=== PATIENT | male | born 1960 | race Two or more races ===

== ENCOUNTER 2024-01-13 12:46 | Emergency (ER) | payer SELFPAY ==
[2024-01-13 13:19] VITALS: BP 158/79; PULSE 60; RESP 19; TEMP 37.1; O2SAT 98; BMI 26.3
--- NOTE | 2024-01-13 13:27 | XR_ITS ---
Examination: Fingers, right hand first digit 3 views Technique: AP, oblique, lateral views right hand first digit 3 views. Exam date and time: January 23, 2024 1331 hrs. Indications: Injury to the hand yesterday with first digit pain Findings: Moderate osteopenia Displaced fracture off the ungual tuft tip distal phalanx No dislocation Impression: Displaced fracture fragment off the ungual tuft tip distal phalanx first digit
--- NOTE | 2024-01-13 13:28 | PD.EDWOUND ---
ED Wound/Laceration-RME/HPI General Chief Complaint: Wound/Laceration Stated Complaint: INJURY TO LEFT THUMB Time Seen by Provider: 01/13/24 12:57 Arrival date/time: 01/13/24 12:46 RME / HPI RME / HPI narrative: 63-year-old male patient with no significant medical history, came in for evaluation regarding left thumb crushing injury. Patient was holding a pipe and hit his thumb with a hammer resulting into laceration avulsion nail left thumb severity moderate. Patient denies any other injury no medication was taken prior to arrival. Related Data Previous Rx's ?Medication ?Instructions ?Recorded cyclobenzaprine 10 mg tablet 10 mg PO TID #14 tabs 04/17/18 indomethacin 25 mg capsule 25 mg PO BID #20 caps 04/17/18 cephalexin 500 mg capsule 500 mg PO Q8H 7 days #21 caps 01/13/24 ibuprofen 800 mg tablet 800 mg PO TID PRN pain #30 tabs 01/13/24 Allergies Allergy/AdvReac Type Severity Reaction Status Date / Time No Known Allergies Allergy Verified 04/17/18 18:17 Review of Systems Review of Systems Narrative Review of Systems: Review of system reviewed and within normal limits except mentioned in HPI ED Exam Narrative Physical exam: VITAL SIGNS: Reviewed. GENERAL APPEARANCE: Alert and interactive, follows commands, no acute distress, HEAD AND FACE: Non-traumatic. ENT: PERRL, pink conjunctivitis, eyelid no trauma, Mucous membrane moist. NECK: Supple, nontender, no nuchal rigidity. RECTAL: Deferred. GENITAL: Deferred. NEUROLOGICAL: Gross motor function intact sensory function intact, Appropriate for age. MUSCULOSKELETAL: low back nontender, full range of motion. EXTREMITIES: Nail avulsion, with 1 cm fingertip laceration left thumb, full range of motion. SKIN: Color pink, dry, no rash, no lacerations, no abrasions, no contusions. LYMPHATICS: Deferred. Course Quality Measures none Orders Category Date Time Status XR finger LT min 2V Stat Exams 01/13/24 13:27 Completed Ibuprofen Tab [Motrin Tab] Med 01/13/24 13:27 Discontinued 800 mg PO X1 ONE Lidocaine 1% 20 ml [Xylocaine 1% 20 ML] Med 01/13/24 13:27 Discontinued 10 ml IM X1 ONE Tet,Diphth,Pertuss(Acell)-Tdap [Boostrix Vacc] Med 01/13/24 13:27 Discontinued 0.5 ml IMI .ONCE ONE cephALEXin [Keflex] Med 01/13/24 13:27 Discontinued 500 mg PO X1 ONE Vital Signs Vital signs: Vital Signs Temperature 98.7 F 01/13/24 13:19 Pulse Rate 60 01/13/24 13:19 Respiratory Rate 19 01/13/24 13:19 Blood Pressure 158/79 H 01/13/24 13:19 Pulse Oximetry (%) 98 01/13/24 13:19 Oxygen Delivery Method Room Air 01/13/24 13:19 Procedures -ED Laceration Laceration 1: Site: other (Thumb) Side (If applicable): left Size (cm): 1.5 Description: irregular Depth: [id number] Local Anesthetic: lidocaine 1% Amount of anesthesia used (mL): 10 Pre-repair: wound explored and irrigated extensively Skin layer closed with: nylon Size (cm): 4-0 Number of sutures: 6 Technique: simple, interrupted Wound / Laceration MDM Narrative MDM Narrative:: 63-year-old male patient with no significant medical history, came in for evaluation regarding left thumb crushing injury. Patient was holding a pipe and hit his thumb with a hammer resulting into laceration avulsion nail left thumb severity moderate. Patient denies any other injury no medication was taken prior to arrival. X-ray of the left thumb showed distal phalanx/tuft fracture. Results discussed with the patient. Repair and suturing was done by me see procedure notes. I did not remove the nail since it serve as protection to the opening wound to the nailbed. At this time chances of the nail to survive is low since it was almost completely avulsed. Patient was placed on a splint. Patient data External records reviewed:: None Clinical information provided by:: patient and family Social determinants that could affect healthcare access:: none Patient has the following chronic illnesses:: None How is presenting disease/condition affected by chronic disease/condition?: no chronic disease Evaluation data The following diagnostics were reviewed and interpreted by me:: radiology exam(s) Lab and/or radiology exams considered but not ordered:: None Interpretation Summary: X-ray of the left thumb showed tuft fracture. Medications / Prescriptions Medications or Prescriptions considered but not ordered:: None Medication administrations:: Medication Administration History Discontinued Medications Cephalexin HCl (Cephalexin 250 Mg Capsule) 500 mg PO X1 ONE Stop: 01/13/24 13:28 Diphtheria/Tetanus/Acell Pertussis (Diphth,Pertuss(Acell),Tet Vac 0.5 Ml Vial) 0.5 ml IMi .ONCE ONE Stop: 01/13/24 13:28 Ibuprofen (Ibuprofen Tab 400 Mg Tablet) 800 mg PO X1 ONE Stop: 01/13/24 13:28 Lidocaine HCl (Lidocaine Hcl 1% 20 Ml Vial) 10 ml IM X1 ONE Stop: 01/13/24 13:28 Keflex, Boostrix, Motrin Consultations Consultation(s) initiated? (list below): No Diagnosis Wound Differential Diagnosis: laceration, abrasion and avulsion of skin Most likely diagnosis given after review of the tests above:: Little bit of motion, distal left thumb laceration, tuft fracture left thumb Admission Indicated Admission indicated?: not indicated Explain why admission is indicated or not indicated:: Stable Admission Request Was there a request for admission?: No Disposition Plan Disposition Plan: Discharge Discharge Attestation Discharge Attestation: The patient and all family members were given an opportunity to ask questions and understood the discharge instructions. Discharge instructions specifically effects, indications for sooner follow up or return to the emergency department, and the expected course of current diagnosis. Patient condition: Stable Discharge Plan Plan Patient Disposition: HOME (Self Care) Disposition Comment: stable Prescriptions/Referrals Prescriptions/Med Rec: New ibuprofen 800 mg tablet 800 mg PO TID PRN (Reason: pain) Qty: 30 0RF cephalexin 500 mg capsule 500 mg PO Q8H 7 Days Qty: 21 0RF No Action indomethacin 25 mg capsule 25 mg PO BID Qty: 20 0RF Rx Instructions: administer with food or milk cyclobenzaprine 10 mg tablet 10 mg PO TID Qty: 14 0RF Problem List Clinical Impression: Avulsion of nail bed, Laceration of thumb, Fracture of thumb, open Patient/Caregiver Discharge Instructions Discharge Activity: activity as tolerated Education Materials: ED Fracture, Thumb Additional Instructions: Thank you for the opportunity for serving you today. You are stable for discharged . You are advised to: Follow-up with your PCP in 1 to 2 days and asked for referral to hand specialist Return to ED for worsening of symptoms Increase oral fluids Take medication as prescribed For removal of sutures in 7 to 10 days Wear your splint minimum 4 weeks Print Language: Swedish Stand Alone Forms: Floridalma Award Info., Work/School Release, Patient Portal Info Letter PA/FLIGHT OPERATIONS MANAGER Supervising Physician PA/FLIGHT OPERATIONS MANAGER Supervising Physician: MD Lewis
[2024-01-13] MEDS: DIPHTH,PERTUSS(ACELL),TET VAC 0.5 ML VIAL IMi (15:11)
[2024-01-13] MEDS: cephALEXin 250 MG CAPSULE 500 MG PO (15:13)
[2024-01-13] MEDS: LIDOCAINE HCL 1% 20 ML VIAL 10 ML IM (15:13)
[2024-01-13] MEDS: IBUPROFEN TAB 400 MG TABLET 800 MG PO (15:13)
== END 2024-01-13 15:44 | disposition home or self-care (01) ==
LOC: SERX 15:42
PROVIDERS: Emergency Provider Emergency Medicine
DX: S62.522B Displaced fracture of distal phalanx of left thumb, initial encounter for open fracture (principal); X58.XXXA Exposure to other specified factors, initial encounter; Z23 Encounter for immunization
CPT/HCPCS: 12001; 73140; 90471; 90715; 99283; J3490; A9270

== ENCOUNTER 2024-01-16 13:54 | Emergency (ER) | payer SELFPAY ==
--- NOTE | 2024-01-16 14:18 | EDNOTE_ITS ---
ED Wound/Laceration-RME/HPI General Chief Complaint: Wound Recheck / Suture Removal Stated Complaint: DRESSING CHANGE Time Seen by Provider: 01/16/24 13:58 Arrival date/time: 01/16/24 13:54 63-year-old male presents emergency department today for a dressing change patient reports he is unable to follow-up with his doctor therefore he came back here for reevaluation initially patient was seen here and had sutures placed on his last visit Limitations: no limitations Related Data Previous Rx's ?Medication ?Instructions ?Recorded cyclobenzaprine 10 mg tablet 10 mg PO TID #14 tabs 04/17/18 indomethacin 25 mg capsule 25 mg PO BID #20 caps 04/17/18 cephalexin 500 mg capsule 500 mg PO Q8H 7 days #21 caps 01/13/24 ibuprofen 800 mg tablet 800 mg PO TID PRN pain #30 tabs 01/13/24 Allergies Allergy/AdvReac Type Severity Reaction Status Date / Time No Known Allergies Allergy Verified 01/16/24 13:57 Review of Systems Review of Systems Systems Reviewed: All systems reviewed, normal except as documented Constitutional Constitutional: Reports system reviewed and no additional complaints, except as documented, Denies fever(s) and Denies headache(s) Eyes Eyes: Reports system reviewed and no additional complaints, except as documented and Denies blurry vision ENT Ears, Nose, Mouth, and Throat: Reports system reviewed and no additional complaints, except as documented, Denies headache(s), Denies nasal congestion and Denies nasal discharge Cardiovascular Cardiovascular: Reports system reviewed and no additional complaints, except as documented, Denies chest pain and Denies dyspnea Respiratory Respiratory: Reports system reviewed and no additional complaints, except as documented, Denies chest congestion, Denies cough and Denies dyspnea Gastrointestinal Gastrointestinal: Reports system reviewed and no additional complaints, except as documented and Denies abdominal pain Musculoskeletal Musculoskeletal: Reports system reviewed and no additional complaints, except as documented and Reports other (Left thumb dressing in place) Integumentary/Breasts Skin/Breast: Reports system reviewed and no additional complaints, except as documented, Denies rash and Reports wounds (Dressing in place/wound left thumb) Neurologic Neurologic: Reports system reviewed and no additional complaints, except as documented, Reports as per HPI and Denies headache(s) Past Medical History Social History SMOKING STATUS: Never smoker ED Exam General Limitations: Present no limitations General appearance: Present alert and in no apparent distress Head Head exam: Present atraumatic Eye Eye exam: Present normal appearance, PERRL and EOMI ENT ENT exam: Present normal exam, normal oropharynx and mucous membranes moist Neck Neck exam: Present normal inspection, full ROM and trachea midline Chest Chest inspection: Present normal inspection and symmetric chest wall rise Respiratory Respiratory exam: Present normal lung sounds bilaterally Cardiovascular Cardiovascular exam: Present regular rate, normal rhythm and normal heart sounds Abdominal Exam Abdominal exam: Present soft and normal bowel sounds Extremities Exam Extremities exam: Present full ROM, tenderness, normal capillary refill and other (Left thumb sutures in place) Back Exam Back exam: Present normal inspection and full ROM Neurological Exam Neurological exam: Present alert, oriented X3 and CN II-XII intact Psychiatric Psychiatric exam: Present normal affect and normal mood Skin Skin exam: Present warm, dry and other (Left thumb sutures in place) Course Quality Measures none Vital Signs Vital signs: Vital Signs Temperature 98 F 01/16/24 14:24 Pulse Rate 78 01/16/24 14:24 Respiratory Rate 16 01/16/24 14:24 Blood Pressure 124/82 01/16/24 14:24 Pulse Oximetry (%) 99 01/16/24 14:24 Oxygen Delivery Method Room Air 01/16/24 14:24 O2 saturation 99% on room air within normal limits Wound / Laceration MDM Narrative MDM Narrative:: 63-year-old male presents emergency department today for a dressing change patient reports he is unable to follow-up with his doctor therefore he came back here for reevaluation initially patient was seen here and had sutures placed on his last visit On exam patient well-appearing patient does not appear ill or toxic in no acute distress On exam patient has sutures in place there is no evidence of infection wound is well-approximated New dressing is applied Patient discharged home in no distress to follow-up with primary care doctor in the next 24 to 48 hours and for any worsening symptoms to return to the ER immediately Patient data External records reviewed:: [facility] previous records Clinical information provided by:: patient Social determinants that could affect healthcare access:: none Patient has the following chronic illnesses:: See history How is presenting disease/condition affected by chronic disease/condition?: uneffected by Evaluation data The following diagnostics were reviewed and interpreted by me:: other (specify) (N/A) Lab and/or radiology exams considered but not ordered:: Consider not ordered Interpretation Summary: N/A Medications / Prescriptions Medications or Prescriptions considered but not ordered:: Given no meds Medication administrations:: No meds given Consultations Consultation(s) initiated? (list below): No Diagnosis Wound Differential Diagnosis: laceration, abrasion and avulsion of skin Most likely diagnosis given after review of the tests above:: Wound recheck Admission Indicated Admission indicated?: not indicated Admission Request Was there a request for admission?: No Disposition Plan Disposition Plan: Discharge Discharge Attestation Discharge Attestation: The patient and all family members were given an opportunity to ask questions and understood the discharge instructions. Discharge instructions specifically effects, indications for sooner follow up or return to the emergency department, and the expected course of current diagnosis. Patient condition: Stable Discharge Plan Plan Patient Disposition: HOME (Self Care) Disposition Comment: Stable Prescriptions/Referrals Prescriptions/Med Rec: No Action indomethacin 25 mg capsule 25 mg PO BID Qty: 20 0RF Rx Instructions: administer with food or milk cyclobenzaprine 10 mg tablet 10 mg PO TID Qty: 14 0RF ibuprofen 800 mg tablet 800 mg PO TID PRN (Reason: pain) Qty: 30 0RF cephalexin 500 mg capsule 500 mg PO Q8H 7 Days Qty: 21 0RF Problem List Clinical Impression: Encounter for wound re-check Patient/Caregiver Discharge Instructions Education Materials: Wound Care Additional Instructions: Please follow up with your primary care doctor in the next 24-48hrs for any worsening symptoms return here immediately Print Language: Burundian Stand Alone Forms: Floridalma Award Info., Patient Portal Info Letter PA/KEYANA Supervising Physician PA/KEYANA Supervising Physician: Dr. gibbons
[2024-01-16 14:24] VITALS: BP 124/82; PULSE 78; RESP 16; TEMP 36.6; O2SAT 99
== END 2024-01-16 14:26 | disposition home or self-care (01) ==
PROVIDERS: Emergency Provider Internal Medicine Rheumatology
DX: Z48.00 Encounter for change or removal of nonsurgical wound dressing (principal)
CPT/HCPCS: 99282